=== PATIENT | male | born 1990 ===

== ENCOUNTER 2020-10-19 03:56 | Emergency (ER) | payer OTHER ==
[~2020-10-19] VITALS: Ht 182.9 cm; Wt 84.1 kg
[2020-10-19 04:23] LABS: STREP SCREEN NEGATIVE
[2020-10-19] MEDS ORDERED: PREDNISONE20 MG PO (04:32)
[2020-10-19 04:50] VITALS: BP 120/82; PULSE 60; TEMP 97
== END 2020-10-19 04:50 | disposition home or self-care (01) ==
LOC: COL.ER 03:56
PROVIDERS: Emergency Medicine
DX: J02.9 Acute pharyngitis, unspecified (principal)
CPT/HCPCS: J1100